=== PATIENT | male | born 1935 | race Caucasian/White ===

== ENCOUNTER 2019-01-08 12:46 | Emergency (ER) | payer MEDICARE, MEDICAID ==
[~2019-01-08] VITALS: Ht 170.2 cm; Wt 70.3 kg
[2019-01-08 12:46] VITALS: BP_SYST 202
[~2019-01-08 12:46] MED LIST: ALBMDI INH; ASA81 PO; FINA5TAB3 PO; LEVO750T19 PO; LISI-600 PO; TAMS-11 PO; TRAM50TA92 PO
--- NOTE | 2019-01-08 13:09 | NUR ---
Placed in room 08 . Placed on [employer], blood pressure machine and pulse oximeter. To gown for exam. Side rails up.
--- NOTE | 2019-01-08 13:15 | NUR ---
Pt AAOx4 kenyan speaking only presents to ED accompanied by daughter and who state pt has had dizziness and weakness this morning. Denies n/v/d/sob/cp/dysuria. Skin dry and warm, breathing even and unlabored. No other injuries/complaints per pt/noted. Will continue to monitor.
--- NOTE | 2019-01-08 14:05 | NUR ---
ER Dr. Camacho at bedside examining patient.
[2019-01-08 14:19] LABS: BASOPHILS % (AUTO) 0.9 % (0.0-2.0); EOSINOPHILS # (AUTO) 0.1 K/uL (0.0-0.4); EOSINOPHILS % (AUTO) 2.7 % (0.0-4.0); HEMOGLOBIN 11.9 g/dL (14.0-18.0); LYMPHOCYTES # (AUTO) 0.7 K/uL (1.0-5.5); MEAN CORPUSCULAR HEMOGLOBIN 30 pg (27-31); MEAN CORPUSCULAR HGB CONC 34 % (32-36); MEAN CORPUSCULAR VOLUME 89 fL (79.0-98.0); MONOCYTES # (AUTO) 0.4 K/uL (0.0-1.0); NEUTROPHILS # (AUTO) 3.3 K/uL (1.8-7.7); NEUTROPHILS % (AUTO) 73.4 % (40.0-70.0); PLATELET COUNT (AUTO) 163 K/uL (130-430); RED BLOOD CELL COUNT(AUTO) 3.93 MIL/uL (4.2-6.2); WHITE BLOOD COUNT (AUTO) 4.5 K/uL (4.8-10.8)
[2019-01-08] MEDS ORDERED: NS 500 ML IV ONE (14:30)
[2019-01-08 14:31] LABS: ANION GAP 5 (5-15); CALCIUM 8.6 mg/dL (8.4-11.0); CHLORIDE 105 mmol/L (98-107); CREATININE 0.74 mg/dL (0.55-1.30); GLUCOSE 107 mg/dL (70-99); POTASSIUM 3.9 mmol/L (3.5-5.1); SODIUM SERUM 135 mmol/L (136-145); UREA NITROGEN, BLOOD 25 mg/dL (8-21)
[2019-01-08 14:35] LABS: INR 1.1 (0.80-1.20); PROTHROMBIN TIME 10.7 SECS (9.5-12.5)
[2019-01-08 14:37] LABS: ALANINE AMINOTRANSFERASE 14 U/L (12-78); ALBUMIN 3.3 g/dL (3.4-4.8); ASPARTATE AMINOTRANSFERASE 13 U/L (10-37); TOTAL BILIRUBIN 0.6 mg/dL (0.0-1.0)
--- NOTE | 2019-01-08 14:38 | NUR ---
Pt taken to radiology in stable condition
--- NOTE | 2019-01-08 14:44 | NUR ---
Pt returned from radiology via [facility] in stable condition
--- NOTE | 2019-01-08 15:42 | NUR ---
Pt laying comfortably in bed with no signs of distress
[2019-01-08 15:44] LABS: BILIRUBIN,URINE NEGATIVE (NEGATIVE); BLOOD, URINE 1+ (NEGATIVE); CLARITY/URINE HAZY (CLEAR); COLOR,URINE YELLOW (YELLOW); GLUCOSE,URINE NEGATIVE (NEGATIVE); KETONES,URINE NEGATIVE (NEGATIVE); LEUKOCYTE ESTERASE ,URINE 1+ (NEGATIVE); NITRITE, URINE NEGATIVE (NEGATIVE); PROTEIN URINE 2+ (NEGATIVE); UROBILINOGEN,URINE 0.2 (0.2-1.0)
[2019-01-08 16:00] LABS: WBC,URINE 20-50 /HPF (0-3)
[2019-01-08 16:01] LABS: BACTERIA,URINE FEW /HPF (None Seen); MUCUS,URINE 1+ /LPF (None Seen)
--- NOTE | 2019-01-08 16:33 | NUR ---
Dr. Camacho at bedside
--- NOTE | 2019-01-08 17:08 | NUR ---
Pt laying comfortably in bed with no signs of distress
[2019-01-08] MEDS ORDERED: CEPHALEXIN 500 MG CAPSULE PO ONE (17:15)
[2019-01-08 17:49] VITALS: BP_SYST 136
--- NOTE | 2019-01-08 17:49 | NUR ---
Patient given written and verbal discharge instructions and verbalizes understanding. ER MD Camacho discussed with patient the results and treatment provided. Patient in stable condition. ID arm band removed. IV catheter removed intact and dressing applied, no active bleeding. Rx of Keflex given. Patient educated on pain management and to follow up with PMD. Pain Scale 0. Opportunity for questions provided and answered. Medication side effect fact sheet provided.
== END 2019-01-08 17:49 | disposition home or self-care (01) ==
LOC: SED 12:46
DX: N39.0 Urinary tract infection, site not specified (principal); R53.1 Weakness; R42 Dizziness and giddiness; R11.0 Nausea; R05 Cough; I10 Essential (primary) hypertension; Z79.82 Long term (current) use of aspirin; Z79.899 Other long term (current) drug therapy
CPT/HCPCS: 36415; 70450; 71045; 80053; 81000; 83605; 84484; 85025; 85610; 85730; 87040; 87086; 93005; 96360; 99283; J7040; 87186-TC

== ENCOUNTER 2019-01-10 10:40 | Emergency (ER) | payer MEDICARE, MEDICAID ==
[~2019-01-10] VITALS: Ht 175.3 cm; Wt 70.3 kg
[2019-01-10 11:12] VITALS: BP_SYST 153
--- NOTE | 2019-01-10 13:18 | NUR ---
Patient to ER bed 4 to gown for evaluation. Side rails up. Report given to Miryam VILLASENOR.
--- NOTE | 2019-01-10 13:20 | NUR ---
[facility] in [facility] - 01/10/19 at 1320 by SDEDAFJ dR Bob
--- NOTE | 2019-01-10 13:20 | NUR ---
Dr Khanna at bedside examining patient
--- NOTE | 2019-01-10 13:20 | NUR ---
Pt brought by family members, A&Ox4, pt states he was sent by PCP for high blood pressure, 151/66, pt denies pain, skin pink and warm , cap refill <3, respirations even and unlabored .
--- NOTE | 2019-01-10 13:22 | NUR ---
[facility] in ED - 01/10/[address] at [address] Khanna at bedside examining patient
[2019-01-10 13:49] VITALS: BP_SYST 151
--- NOTE | 2019-01-10 13:49 | NUR ---
Patient given written and verbal discharge instructions and verbalizes understanding. ER MD discussed with patient the results and treatment provided. Patient in stable condition. ID arm band removed. No Rx given. Patient educated on pain management and to follow up with PMD. Pain Scale 0/10 . Opportunity for questions provided and answered. Medication side effect fact sheet provided.
== END 2019-01-10 13:49 | disposition home or self-care (01) ==
LOC: SED 10:40
DX: I16.0 Hypertensive urgency (principal); Z79.899 Other long term (current) drug therapy
CPT/HCPCS: 99281

== ENCOUNTER 2020-06-22 06:43 | Emergency (ER) | payer MEDICARE, MEDICAID, SELFPAY ==
[~2020-06-22] VITALS: Ht 172.7 cm; Wt 69.9 kg
[2020-06-22 06:43] VITALS: BP_SYST 181
[~2020-06-22 06:43] MED LIST changes: -ALBMDI INH; +DONE10TA44 PO; -LEVO750T19 PO; -LISI-600 PO; +LISI20TA30 PO; +MECL-97 PO; +MEMA10TA PO; +MONT10TA33 PO; +OMEG1CAP55 PO
[2020-06-22 07:22] LABS: EOSINOPHILS # (AUTO) 0.2 K/uL (0.0-0.4); EOSINOPHILS % (AUTO) 6.7 % (0.0-4.0); HEMATOCRIT 36.9 % (36-54); HEMOGLOBIN 12.2 g/dL (14.0-18.0); LYMPHOCYTES # (AUTO) 1.2 K/uL (1.0-5.5); LYMPHOCYTES % (AUTO) 31.7 % (20.5-51.5); MEAN CORPUSCULAR HEMOGLOBIN 29 pg (27-31); MEAN CORPUSCULAR HGB CONC 33 % (32-36); MEAN CORPUSCULAR VOLUME 88 fL (79.0-98.0); MONOCYTES # (AUTO) 0.3 K/uL (0.0-1.0); MONOCYTES % (AUTO) 8.2 % (1.7-9.3); NEUTROPHILS # (AUTO) 1.9 K/uL (1.8-7.7); NEUTROPHILS % (AUTO) 52.4 % (40.0-70.0); PLATELET COUNT (AUTO) 155 K/uL (130-430); RED BLOOD CELL COUNT(AUTO) 4.18 MIL/uL (4.2-6.2); RED CELL DISTRIBUTION WIDTH 14.2 % (9.0-15.0); WHITE BLOOD COUNT (AUTO) 3.7 K/uL (4.8-10.8)
[2020-06-22 07:34] LABS: ANION GAP 10 (5-15); CALCIUM 8.8 mg/dL (8.4-11.0); CHLORIDE 108 mmol/L (98-107); CREATININE 0.75 mg/dL (0.55-1.30); GLUCOSE 104 mg/dL (70-99); POTASSIUM 3.4 mmol/L (3.5-5.1); SODIUM SERUM 143 mmol/L (136-145); UREA NITROGEN, BLOOD 21 mg/dL (8-21)
[2020-06-22 07:38] LABS: PROTHROMBIN TIME 10.4 SECS (9.5-12.5)
[2020-06-22 07:39] LABS: ALANINE AMINOTRANSFERASE 20 U/L (12-78); ALBUMIN 3.3 g/dL (3.4-4.8); ASPARTATE AMINOTRANSFERASE 13 U/L (10-37); TOTAL BILIRUBIN 0.6 mg/dL (0.0-1.0)
[2020-06-22] MEDS ORDERED: MECLIZINE HCL 25 MG TABLET (ANITVERT) PO ONE (08:15)
[2020-06-22] MEDS ORDERED: ONDANSETRON HCL 4 MG/2 ML VIAL IVP ONE (08:20)
[2020-06-22] MEDS ORDERED: ONDANSETRON HCL 4 MG/2 ML VIAL ONE (08:22)
[2020-06-22 08:44] LABS: BILIRUBIN,URINE NEGATIVE (NEGATIVE); BLOOD, URINE 1+ (NEGATIVE); CLARITY/URINE CLEAR (CLEAR); COLOR,URINE YELLOW (YELLOW); GLUCOSE,URINE NEGATIVE (NEGATIVE); KETONES,URINE NEGATIVE (NEGATIVE); LEUKOCYTE ESTERASE ,URINE TRACE (NEGATIVE); NITRITE, URINE NEGATIVE (NEGATIVE); PROTEIN URINE 2+ (NEGATIVE); UROBILINOGEN,URINE 0.2 (0.2-1.0)
[2020-06-22 08:56] LABS: BACTERIA,URINE None Seen /HPF (None Seen); TRICHOMONAS,URINE None Seen /HPF (None Seen); YEAST,URINE None Seen /HPF (None Seen)
[2020-06-22] MEDS ORDERED: NACL 0.9% 1,000 ML IV ONE (09:15)
[2020-06-22] MEDS ORDERED: cefTRIAXone 1 GM VIAL IM ONE (09:15)
[2020-06-22] MEDS ORDERED: cefdinir PO (09:35)
[2020-06-22] MEDS ORDERED: MECL-97 PO (09:35)
[2020-06-22] MEDS ORDERED: ONDA-8 TL (09:35)
[2020-06-22 10:40] VITALS: BP_SYST 168
== END 2020-06-22 10:41 | disposition home or self-care (01) ==
LOC: SED 06:43
DX: I10 Essential (primary) hypertension (principal); R53.1 Weakness; F17.200 Nicotine dependence, unspecified, uncomplicated; Z79.899 Other long term (current) drug therapy; Z79.82 Long term (current) use of aspirin; Z20.822 Contact with and (suspected) exposure to COVID-19
CPT/HCPCS: 36415; 70450; 71045; 76376; 80053; 81000; 83605; 83880; 84484; 85025; 85610; 85730; 87040; 87086; 87426; 93005; 96361; 96372; 96374; 99285; J0696; J2405; J7030; J8597

== ENCOUNTER 2020-07-17 21:43 | Emergency (ER) | payer MEDICARE, MEDICAID ==
[~2020-07-17] VITALS: Ht 172.7 cm; Wt 68.0 kg
[2020-07-17 21:43] VITALS: BP_SYST 144
[~2020-07-17 21:43] MED LIST changes: -LISI20TA30 PO; +LISI30TA36 PO; +MECL-103 PO; -MECL-97 PO; +METO25TA6 PO
[2020-07-17] MEDS ORDERED: NACL 0.9% 1,000 ML IV ONE (22:45)
[2020-07-17 23:11] LABS: BASOPHILS % (AUTO) 0.4 % (0.0-2.0); EOSINOPHILS # (AUTO) 0.1 K/uL (0.0-0.4); EOSINOPHILS % (AUTO) 0.9 % (0.0-4.0); HEMATOCRIT 34.4 % (36-54); HEMOGLOBIN 11.5 g/dL (14.0-18.0); LYMPHOCYTES # (AUTO) 1.9 K/uL (1.0-5.5); LYMPHOCYTES % (AUTO) 23.2 % (20.5-51.5); MEAN CORPUSCULAR HEMOGLOBIN 30 pg (27-31); MEAN CORPUSCULAR HGB CONC 33 % (32-36); MEAN CORPUSCULAR VOLUME 89 fL (79.0-98.0); MONOCYTES # (AUTO) 1.2 K/uL (0.0-1.0); MONOCYTES % (AUTO) 15.1 % (1.7-9.3); NEUTROPHILS % (AUTO) 60.4 % (40.0-70.0); PLATELET COUNT (AUTO) 161 K/uL (130-430); RED BLOOD CELL COUNT(AUTO) 3.89 MIL/uL (4.2-6.2); RED CELL DISTRIBUTION WIDTH 14.6 % (9.0-15.0); WHITE BLOOD COUNT (AUTO) 8.2 K/uL (4.8-10.8)
[2020-07-17 23:24] LABS: CALCIUM 8.6 mg/dL (8.4-11.0); CREATININE 1.15 mg/dL (0.55-1.30); GLUCOSE 121 mg/dL (70-99); POTASSIUM 3.5 mmol/L (3.5-5.1); UREA NITROGEN, BLOOD 32 mg/dL (8-21)
[2020-07-17 23:30] LABS: BILIRUBIN,URINE NEGATIVE (NEGATIVE); BLOOD, URINE 1+ (NEGATIVE); COLOR,URINE YELLOW (YELLOW); GLUCOSE,URINE NEGATIVE (NEGATIVE); KETONES,URINE NEGATIVE (NEGATIVE); LEUKOCYTE ESTERASE ,URINE 1+ (NEGATIVE); NITRITE, URINE NEGATIVE (NEGATIVE); PH,URINE 5.5 (5.0-8.0); PROTEIN URINE 2+ (NEGATIVE); UROBILINOGEN,URINE 0.2 (0.2-1.0)
[2020-07-17 23:30] LABS: ANION GAP 7 (5-15); CHLORIDE 107 mmol/L (98-107); SODIUM SERUM 142 mmol/L (136-145)
[2020-07-17 23:32] LABS: CLARITY/URINE SLIGHTLY CLOUDY (CLEAR)
[2020-07-18 00:12] LABS: BACTERIA,URINE MODERATE /HPF (None Seen); WBC,URINE 20-50 /HPF (0-3)
[2020-07-18] MEDS ORDERED: cefTRIAXone 1 GM VIAL IM ONE (01:00)
[2020-07-18] MEDS ORDERED: CEFU250T85 PO (01:01)
[2020-07-18 01:27] VITALS: BP_SYST 132
[2020-07-18] MEDS ORDERED: cefTRIAXone 1 GM in D5W 50 ML IV ONE (01:30)
== END 2020-07-18 01:27 | disposition home or self-care (01) ==
LOC: SED 21:43
DX: N39.0 Urinary tract infection, site not specified (principal); T46.4X5A Adverse effect of angiotensin-converting-enzyme inhibitors, initial encounter; I10 Essential (primary) hypertension; Z79.899 Other long term (current) drug therapy; Y92.89 Other specified places as the place of occurrence of the external cause
CPT/HCPCS: 36415; 80048; 81000; 85025; 87040; 87086; 96361; 96365; 99284; J0696; J7030